=== PATIENT | male | born 1990 | race Two or more races ===

== ENCOUNTER 2017-07-19 10:34 | Emergency (ER) | payer BC, OTHER ==
[2017-07-19] MEDS ORDERED: FENTANYL CITRATE INJ/PF 100 MCG/2 ML AMPUL IV ONE (10:42)
--- NOTE | 2017-07-19 10:43 | ER Document Report ---
ED Hand/Wrist Injury - General Stated Complaint: FINGER LACERATION Time Seen by Provider: 07/19/17 10:39 Mode of Arrival: Medic Information source: Patient TRAVEL OUTSIDE OF THE [place] IN LAST 30 DAYS: No - HPI Injury to: Middle finger Onset: Just prior to arrival Where: Work Timing: Constant Quality of pain: Throbbing Severity: Severe Context: Other - POWER SAW - Related Data Allergies/Adverse Reactions: amoxicillin Allergy (Verified 07/19/17 10:42) Penicillins Allergy (Verified 07/19/17 10:42) Past Medical History - General Information source: Patient - Social History Smoking Status: Unknown if Ever Smoked Smoking Education Provided: No Frequency of alcohol use: Occasional Drug Abuse: None Lives with: Family Family History: Reviewed & Not Pertinent Patient has suicidal ideation: No Patient has homicidal ideation: No - Past Medical History Cardiac Medical History: Reports: None Pulmonary Medical History: Reports: None EENT Medical History: Reports: None Neurological Medical History: Reports: None Endocrine Medical History: Reports: None Renal/ Medical History: Reports: None. Denies: Hx Renal Insufficiency Malignancy Medical History: Reports None GI Medical History: Reports: None. Denies: Hx Gastritis, Hx Gastroesophageal Reflux Disease Musculoskeltal Medical History: Reports None Skin Medical History: Reports None Psychiatric Medical History: Reports: None Traumatic Medical History: Reports: None Surgical Hx: Negative - Immunizations Hx Diphtheria, Pertussis, Tetanus Vaccination: Yes Review of Systems - Review of Systems Constitutional: No symptoms reported EENT: No symptoms reported Cardiovascular: No symptoms reported Respiratory: No symptoms reported Gastrointestinal: No symptoms reported Genitourinary: No symptoms reported Musculoskeletal: See HPI Skin: See HPI Neurological/Psychological: No symptoms reported Physical Exam - Vital signs Vitals: Pulse Ox 95 07/19/17 10:51 Interpretation: Hypertensive - General General appearance: Alert In distress: Moderate - HEENT Head: Normocephalic Eyes: Normal Conjunctiva: Normal Ears: Normal Nasal: Normal Mouth/Lips: Normal Mucous membranes: Normal - Respiratory Respiratory status: No respiratory distress - Cardiovascular Rhythm: Regular - Abdominal Inspection: Normal Distension: No distension - Extremities General upper extremity: No: Normal inspection - L. HAND (SEE BELOW) General lower extremity: Normal inspection Hand: Other - L. INDEX FINGERTIP AMPUTATED DOWN TO MIDDLE OF NAIL PLATE & BED Course - Vital Signs Vital signs: Temp Pulse Resp BP Pulse Ox 98.9 F 128/99 H 91 L 07/19/17 11:05 07/19/17 10:55 07/19/17 11:01 - Laboratory Result Diagrams: 07/19/17 11:27 07/19/17 11:27 Laboratory results interpreted by me: 07/19/17 11:27 WBC 12.6 H RDW 14.1 H - Diagnostic Test Radiology reviewed: Image reviewed, Reports reviewed - Consults DR. WOLF Time consulted: 11:22 Consulted provider: will come to ER Discharge - Discharge Clinical Impression: Open fracture of tuft of distal phalanx of finger Fingertip amputation Qualifiers: Encounter type: initial encounter Qualified Code(s): S68.129A - Partial traumatic metacarpophalangeal amputation of unspecified finger, initial encounter Condition: Stable Disposition: HOME, SELF-CARE Instructions: Open Finger Tuft Fracture ([facility]), Elevate the Injury ([facility]), Oral Narcotic Medication ([facility]), Prophylactic Antibiotic ([facility]), Tetanus Immunization Given ([facility]) Additional Instructions: KEEP BANDAGE ON, CLEAN AND DRY. KEEP HAND ELEVATED HIGH POSSIBLE, MUCH POSSIBLE. MEDS DIRECTED. YOU MAY TAKE NORCO FOR MORE SEVERE PAIN CONTROL, TYLENOL OR IBUPROFEN FOR LESS SEVERE PAIN. FOLLOW UP WITH DR. WOLF IN HIS OFFICE JULY 23. CALL OFFICE TODAY FOR APPOINTMENT TIME. Prescriptions: Hydrocodone/Acetaminophen [[place] 5-325 mg Tablet] 1 tab PO Q4HP PRN #14 tablet PRN Reason: For Pain Sulfamethoxazole/Trimethoprim [Sulfamethoxazole-Tmp Ds Tablet] 2 each PO BID # 40 tablet Referrals: YOHAN WOLF MD [ACTIVE STAFF] - 07/23/17
[2017-07-19] MEDS ORDERED: DIPH/PERTUSS(ACELL)/TETANUS VAC/PF 0.5 ML SYR (>=10YO) IM ONE (10:46)
[2017-07-19] MEDS ORDERED: CEFTRIAXONE 1 GM/D5W RTU 1 GM/50 ML RTUPB IV ONE (11:10)
[2017-07-19] MEDS ORDERED: HYDROMORPHONE HCL INJ/PF 2 MG/ML AMPULE IV ONE (11:11)
[2017-07-19] MEDS ORDERED: MIDAZOLAM 2 MG/2 ML INJ IV ONE (11:23)
[2017-07-19 11:56] LABS: ABSOLUTE BASOPHILS # (AUTO) 0.1 10^3/uL (0.0-0.2); ABSOLUTE EOSINOPHILS # (AUTO) 0.1 10^3/uL (0.0-0.6); ABSOLUTE MONOCYTES (AUTO) 0.9 10^3/uL (0.1-1.4); ABSOLUTE NEUT (AUTO) 7.6 10^3/uL (1.7-8.2); BASOPHILS % (AUTO) 0.5 % (0-2); EOSINOPHILS % (AUTO) 0.5 % (0-6); HEMATOCRIT 42.2 % (37.9-51.0); HEMOGLOBIN 14.2 g/dL (13.5-17.0); LYMPHOCYTES % (AUTO) 31.4 % (13-45); MEAN CORPUSCULAR HEMOGLOBIN 27.7 pg (27.0-33.4); MEAN CORPUSCULAR HGB CONC 33.6 g/dL (32.0-36.0); MEAN CORPUSCULAR VOLUME 83 fl (80-97); PLATELET COUNT 406 10^3/uL (150-450); RED BLOOD COUNT 5.12 10^6/uL (4.35-5.55); RED CELL DISTRIBUTION WIDTH 14.1 % (11.5-14.0); SEGMENTED NEUTROPHILS % (AUTO) 60.6 % (42-78); TOTAL CELLS COUNTED % (AUTO) 100 %; WHITE BLOOD COUNT 12.6 10^3/uL (4.0-10.5)
[2017-07-19 12:16] LABS: ALANINE AMINOTRANSFERASE 32 U/L (21-72); ALBUMIN 4.8 g/dL (3.5-5.0); ALKALINE PHOSPHATASE 52 U/L (38-126); ANION GAP 17 (5-19); ASPARTATE AMINO TRANSFERASE 26 U/L (17-59); BILIRUBIN,DIRECT 0.4 mg/dL (0.0-0.4); BILIRUBIN,TOTAL 0.7 mg/dL (0.2-1.3); BLOOD UREA NITROGEN 17 mg/dL (7-20); CALCIUM 10.2 mg/dL (8.4-10.2); CARBON DIOXIDE 20 mmol/L (22-30); CHLORIDE 106 mmol/L (98-107); GLUCOSE 104 mg/dL (75-110); POTASSIUM 4.4 mmol/L (3.6-5.0); SODIUM 142.7 mmol/L (137-145); TOTAL PROTEIN 8.5 g/dL (6.3-8.2)
--- NOTE | 2017-07-19 12:18 | PDOC CONSULTATION ---
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 The patient is very articulate about the fact that this was a coarse blade with 40-60 teeth and was brand-new. Following the injury the patient was brought to the emergency room. When I entered the minor procedure room the patient's employer is with him. Past Medical History Cardiac Medical History: Reports: None Pulmonary Medical History: Reports: None EENT Medical History: Reports: None Neurological Medical History: Reports: None Endocrine Medical History: Reports: None Renal/ Medical History: Reports: None Malignancy Medical History: Reports: None GI Medical History: Reports: None Denies: Gastroesophageal Reflux Disease Musculoskeltal Medical History: Reports: None Skin Medical History: Reports: None Psychiatric Medical History: Reports: None Traumatic Medical History: Reports: None Past Surgical History Past Surgical History: Reports: None Social History Information Source: Patient, [facility] Records Lives with: Family Smoking Status: Unknown if Ever Smoked Family History Family History: Reviewed & Not Pertinent Parental Family History Reviewed: No Children Family History Reviewed: No Sibling(s) Family History Reviewed.: No Medication/Allergy Home Medications: No Home Medications 07/19/17 Allergies/Adverse Reactions: amoxicillin Allergy (Verified 07/19/17 10:42) Penicillins Allergy (Verified 07/19/17 10:42) Review of Systems All systems: as per [facility] Physical Exam Vital Signs: Temp Pulse Resp BP Pulse Ox 37.2 C 128/99 H 91 L 07/19/17 11:05 07/19/17 10:55 07/19/17 11:01 Intake & Output 07/18/17 07/19/17 07/20/17 06:59 06:59 06:59 Weight 74.843 kg Physical Exam: The patient is a young white male in what appears to be extreme distress. The distress is way out of proportion to the level of the injury. Prior to being able to address this with the patient he received sedation through Dr. Nori San in the emergency room. The dressing is removed. The fingertip is examined. Again because of drama a digital block is performed with a combination of half percent Xylocaine and quarter percent Marcaine. Subsequently the digit and the hand are cleaned using peroxide and gauze. The fingertip is examined. The amputation is through the junction of the middle and proximal third of the nail bed. There is no significant active bleeding. There is bone in the amputation bed that is exposed. The wound is thoroughly cleaned. A sterile Xeroform gauze dressing is placed. General appearance: PRESENT: severe distress Head exam: PRESENT: normocephalic Respiratory exam: PRESENT: unlabored Cardiovascular exam: PRESENT: RRR Pulses: PRESENT: normal radial pulses, +1 pedal pulses bilateral Vascular exam: PRESENT: normal capillary refill Extremities exam: PRESENT: other - As above Results Laboratory Results: 07/19/17 11:27 07/19/17 11:27 WBC 12.6 H RBC 5.12 Hgb 14.2 Hct 42.2 MCV 83 MCH 27.7 MCHC 33.6 RDW 14.1 H Plt Count 406 Seg Neutrophils % 60.6 Lymphocytes % 31.4 Monocytes % 7.0 Eosinophils % 0.5 Basophils % 0.5 Absolute Neutrophils 7.6 Absolute Lymphocytes 4.0 Absolute Monocytes 0.9 Absolute Eosinophils 0.1 Absolute Basophils 0.1 Status: Imported from PACS Assessment & Plan - Diagnosis (1) Fingertip amputation Qualifiers: Encounter type: initial encounter Qualified Code(s): S68.129A - Partial traumatic metacarpophalangeal amputation of unspecified finger, initial encounter Plan: At this point I think the patient has 2 options. One is to attempt to have the wound heal by secondary intent the advantage of course would be to maintain maximal finger length. The disadvantage is that this may take a prolonged course in terms of healing. The alternative is to shorten the finger to allow the existing soft tissue envelope to cover the exposed bone. Presumably this would be a DIP disarticulation. At this point the patient has been sedated and I am not sure that he is in a position to make any significant decisions. He is accompanied by his employer initially and later by his girlfriend. I do not think either of these people are in a position to make a decision. Therefore sterile dressing is applied. The patient's can be discharged with pain medication and to biotic medication. I will see him in the office on Saturday and will continue the course of discussion. - Time Time Spent: Greater than 70 Minutes Anticipated discharge: Home Within: Other
--- NOTE | 2017-07-19 12:18 | RADIOLOGY REPORT (SQ) ---
EXAM DESCRIPTION: FINGER LEFT COMPLETED DATE/TIME: 07/19/2017 11:54 am REASON FOR STUDY: FINGERTIP AMPUTATION COMPARISON: None. NUMBER OF VIEWS: Three views. TECHNIQUE: AP, lateral, and oblique images acquired of the left third finger. LIMITATIONS: None. FINDINGS: MINERALIZATION: Normal. BONES: Acute partial amputation distal tuft 3rd finger distal phalanx. SOFT TISSUES: Acute partial amputation of the distal left 3rd finger tip/fingernail soft tissues. OTHER: No other significant finding. IMPRESSION: Acute partial amputation of the distal 3rd finger tip, including soft tissues and dista l tuft 3rd finger distal phalanx COMMENT: SITE OF TRAUMA/COMPLAINT MARKED/STAMP COMPLETED: Yes TECHNICAL DOCUMENTATION: JOB ID: [id number] [employer]- All Rights Reserved Reading location - IP/workstation name: [email or web address]
[2017-07-19 13:23] LABS: APPEARANCE,URINE CLEAR; BILIRUBIN,URINE NEGATIVE (NEGATIVE); COLOR,URINE YELLOW; GLUCOSE, URINE NEGATIVE (NEGATIVE); KETONES,URINE TRACE mg/dL (NEGATIVE); LEUKOCYTE ESTERASE,URINE NEGATIVE (NEGATIVE); NITRITE,URINE NEGATIVE (NEGATIVE); PROTEIN,URINE NEGATIVE (NEGATIVE); URINE SPECIFIC GRAVITY 1.024; UROBILINOGEN,URINE NEGATIVE mg/dL (<2.0)
[2017-07-19 13:30] VITALS: BP 129/74
[2017-07-19 13:37] LABS: URINE AMPHETAMINES SCREEN NEGATIVE; URINE BARBITURATES SCREEN NEGATIVE; URINE BENZODIAZEPINES SCREEN UNCONFIRMED POSITIVE; URINE COCAINE SCREEN NEGATIVE; URINE MARIJUANA (THC) SCREEN UNCONFIRMED POSITIVE; URINE METHADONE SCREEN NEGATIVE; URINE PHENCYCLIDINE SCREEN NEGATIVE
== END 2017-07-19 13:29 | disposition home or self-care (01) ==
LOC: ER 10:34
DX: S68.129A Partial traumatic metacarpophalangeal amputation of unspecified finger, initial encounter (principal); X58.XXXA Exposure to other specified factors, initial encounter
CPT/HCPCS: 99284; 90471; 96375; 96365; 36415; 85025; 80053; 81001; 80307; 73140; 90715; J2250; J3010; J1170; J0696